=== PATIENT | female | born 1940 | race Caucasian/White ===

== ENCOUNTER → 2016-12-16 | Outpatient (CLI) | payer MEDICARE, OTHER ==
[~2016-12-16] MED LIST: ASPIRIN EC81 MG PO; ATIVAN 0.5MG0.5 MG PO; CALCIUM 600 +1 EA13 PO; DPS FOR LIBRAX1 CAP PO; FISH OIL1000 MG PO; JUICE PLUS PO; LEXAPRO10 MG PO; PRILOSEC20 MG PO; VITAMIN D1000 UNIT PO; ZOCOR20 MG PO
== END | disposition disaster alternative care site (69) ==
LOC: GBCOE 09:18
DX: Z12.31 Encounter for screening mammogram for malignant neoplasm of breast (principal)
CPT/HCPCS: G0202